=== PATIENT | male | born 1985 | race Caucasian/White ===

== ENCOUNTER 2016-11-08 21:17 | Emergency (ER) | payer BC, OTHER ==
[~2016-11-08 21:17] MED LIST: [UNRECOGNIZED DRUG - REMARK]
[2016-11-08 21:19] VITALS: BP 127/84; PULSE 79; TEMP 36.7; O2SAT 96
[2016-11-08] MEDS ORDERED: ACET-1256 PO (21:51)
--- NOTE | 2016-11-09 05:54 | EMERGENCY ROOM VISIT NOTE ---
History First contact with patient: 21:44 Chief Complaint: FOREIGNBODY ANY BODY PART Stated Complaint: LURE IN RIGHT THUMB History of Present Illness The patient is a 31 year old male who presents to the Emergency Room with complaints of foreign body in his right thumb. The patient was fishing when he got a tri-hook [place] stuck into the end of his right thumb. The patient was not able to remove this himself. He is reportedly up-to-date on his tetanus. He does not have other injuries and rates discomfort a 2/10. Review of Systems More than 10 systems were reviewed and otherwise negative with the exception of history of present illness. Past Medical/Surgical History No pertinent medical disease Family History No pertinent family history Social History Smoking Status: Former Smoker Current/Historical Medications Scheduled PRN Acetaminophen (Tylenol), 1,000 MG PO Q6H PRN for Pain Physical Exam Vital Signs Date Time Temp Pulse Resp B/P (MAP) Pulse Ox O2 Delivery O2 Flow Rate FiO2 11/08/16 21:19 36.7 79 18 127/84 96 Room Air Pain Rating (0-10): 0 Physical Exam VITALS: Vitals are noted on the nurse's note and reviewed by myself. Vital signs stable. GENERAL: Well-developed, well-nourished, white male, who is in no acute distress and resting comfortably. Patient is cooperative with the examination. HEART: Regular rate and rhythm without murmurs gallops or rubs. LUNGS: Clear to auscultation bilaterally without wheezes, rales or rhonchi. No retractions or accessory muscle use. SKIN: The skin was with obvious fishhook foreign body in the distal end of the right thumb. The patient does have full sensation and range of motion of the digit. No other injuries noted. Medical Decision & Procedures ED Course Physical exam and history were performed. Nursing notes, EMR, and Medication List were personally reviewed. Patient appears to have a fishhook foreign body of the end of his right thumb. The ends of the remaining barbs were covered with silk tape. Umbilical tape was affixed to the floor, and utilizing a quick axial motion the fishhook was removed without difficulty. The exit wound was inspected, cleansed, and dressed. The patient continued with full sensation and range of motion. The fishhook was removed in its entirety. The patient does not need a tetanus or antibiotics. He was given wound care instructions and discharged to follow with his primary care physician with any ongoing or persisting symptoms. The chart was completed utilizing [employer] Voice Recognition Software. Grammatical errors, random word insertions, pronoun errors, and incomplete sentences are an occasional consequence of this system due to software limitations, ambient noise, and hardware issues. Any formal questions or concerns about the content, text, or information contained within the body of this dictation should be directly addressed to the provider for clarification. . Medical Decision Differential diagnosis includes, but is not limited to: Foreign body, laceration , infection, and others Impression Primary Impression: Fishing hook foreign body Departure Information Dispostion Home / Self-Care Condition GOOD Forms HOME CARE DOCUMENTATION FORM, IMPORTANT VISIT INFORMATION Patient Instructions My [facility] Additional Instructions You were seen and evaluated today on an emergency basis only. This is not a substitute for, or an effort to provide, complete comprehensive medical care. It is not possible to recognize and treat all injuries or illnesses in a single emergency department visit. For this reason it is recommended that you followup with your primary care physician with any ongoing or persistent symptoms. Keep the area covered with a bacitracin dressing for the next 2-3 days then leave open to air. You are welcome to return to the emergency department anytime with new, worsening, or concerning symptoms.
== END 2016-11-08 22:08 | disposition home or self-care (01) ==
LOC: C.EDB 21:19 → C.EDD 22:08
DX: S60.351A Superficial foreign body of right thumb, initial encounter (principal); X58.XXXA Exposure to other specified factors, initial encounter